=== PATIENT | male | born 1980 ===

== ENCOUNTER 2023-08-30 10:32 | Inpatient (IN) | payer OTHER ==
[2023-08-23 09:41] LABS: PH,URINE 6.5 (5.0-8.0); URINE APPEARANCE Clear; URINE BILIRRUBIN Negative (NEGATIVE); URINE BLOOD Negative; URINE COLOR Yellow; URINE GLUCOSE Negative (NEGATIVE); URINE LEUKOCYTE Negative; URINE NITRATE Negative; URINE PROTEIN Negative (NEGATIVE); URINE UROBILINOGEN 0.2 E.U./dl
[2023-08-23 09:43] LABS: URINE BACTERIA 7.5 uL (0.0-1933); URINE EPITHELIAL CELLS 2.3 uL (0.0-38.8); URINE RBC 3.1 uL (0.0-20.8); URINE WBC 4.4 uL (0.0-23.2)
[2023-08-23 09:45] LABS: HEMATOCRIT 48.7 % (39.0-48.0); HEMOGLOBIN 17.1 g/dL (13-16.00); MEAN CELL VOLUME 83.4 fL (80.0-100.00); MEAN CORPUSCULAR HEMOGLOBIN 29.2 pg (27.00-32.0); PLATELET COUNT 210 K/uL (150-450); RED BLOOD COUNT 5.85 M/uL (4.00-6.00)
[2023-08-23 10:15] LABS: ALBUMIN 4.4 gm/dL (3.4-5.0); BILIRUBIN TOTAL 0.6 mg/dL (0.3-1.2); CALCIUM 9.8 mg/dL (8.5-10.1); CREATININE SERUM 1.17 mg/dL (0.70-1.30); GFR 67.72; GLOBULINA 3.1 G/DL (2.4-3.5); POTASSIUM 3.87 mEq/L (3.5-5.1); TOTAL PROTEIN 7.5 gm/dL (6.4-8.2)
[2023-08-24 14:14] LABS: INR 0.98; PROTHROMBIN TIME 10.3 SECONDS (9.0-11.5)
[~2023-08-30] VITALS: Ht 165.1 cm; Wt 71.7 kg
[2023-08-30] MEDS ORDERED: OXYMETAZOLINE HCL 15 ML NASAL DROPS NASAL SCH (15:15)
[2023-08-30] MEDS ORDERED: SUGAMMADEX SODIUM 200 MG/2 ML VIAL IV ONE (15:58)
[2023-08-30] MEDS ORDERED: SUGAMMADEX SODIUM 200 MG/2 ML VIAL IV SCH (16:00)
[2023-08-30] MEDS ORDERED: ACETAMINOPHEN 325 MG TABLET PO SCH (16:38)
[2023-08-30] MEDS ORDERED: FAMOTIDINE/PF 20 MG/2 ML VIAL IV SCH (16:38)
[2023-08-30] MEDS ORDERED: FAMOTIDINE/PF 20 MG/2 ML VIAL ONE (17:17)
[2023-08-30] MEDS ORDERED: ONDANSETRON HCL 2 MG/ML VIAL ONE (17:50)
[2023-08-30] MEDS ORDERED: MORPHINE SULFATE 4 MG/ML CARTRIDGE IV SCH (18:00)
== END 2023-08-31 11:30 | disposition home or self-care (01) | DRG 145 ==
LOC: CIR.AMB 10:32 → O/R 17:00 → SURH 17:02
PROVIDERS: ADMIT Otolaryngology; ATTEND Otolaryngology
PROC: 0CBPXZZ Excision of Tonsils, External Approach (ICD-10-PCS; 2023-08-30)
PROC: 0CBQXZZ Excision of Adenoids, External Approach (ICD-10-PCS; principal; 2023-08-30 07:00)
DX: J35.1 Hypertrophy of tonsils (principal); J35.2 Hypertrophy of adenoids; Z20.822 Contact with and (suspected) exposure to COVID-19